=== PATIENT | female | born 1990 | race Caucasian/White ===

== ENCOUNTER 2018-08-30 15:30 | Day surgery (SDC) | payer OTHER ==
[~2018-08-30] VITALS: Ht 162.6 cm; Wt 89.3 kg
[2018-08-30 16:22] VITALS: BP 126/74; PULSE 76; TEMP 98.9
[2018-08-30] MEDS ORDERED: BRINTELLIX20 PO (16:50)
[2018-08-30] MEDS ORDERED: PRENATAL FORMU1 EAC3 PO (16:51)
[2018-08-30 17:25] VITALS: BP 109/64; PULSE 79; TEMP 97.9
[2018-08-30 17:30] VITALS: BP 105/64; PULSE 76
[2018-08-30] MEDS ORDERED: IBU600 MG PO (17:33)
[2018-08-30 17:45] VITALS: BP 100/59; PULSE 72
[2018-08-30 18:00] VITALS: BP 117/78; PULSE 77
[2018-08-30 18:45] VITALS: BP 125/71; PULSE 84; TEMP 98.5
== END 2018-08-30 19:05 | disposition home or self-care (01) ==
LOC: SDCO 15:30
DX: O02.1 Missed abortion (principal); F43.10 Post-traumatic stress disorder, unspecified; F90.9 Attention-deficit hyperactivity disorder, unspecified type; F41.9 Anxiety disorder, unspecified; K21.9 Gastro-esophageal reflux disease without esophagitis; D64.9 Anemia, unspecified
CPT/HCPCS: G0378; J0690; J1885; J2405; J2704; J3010

== ENCOUNTER → 2021-10-29 | Outpatient (CLI) | payer OTHER ==
[~2021-10-29] VITALS: Ht 162.6 cm; Wt 100.7 kg
[~2021-10-29] MED LIST: BRINTELLIX20 PO; D3-5050000 IU PO; EFFEXOR XR75 MG/CAP PO; FLEXERIL 1010 MG/TAB PO; IBU600 MG PO; PRENATAL FORMU1 EAC3 PO; VYVANSE30 MG PO; WEGOVY2.4 MG/0.7 SQ
[2021-10-29 09:11] VITALS: BP 119/78; PULSE 82; TEMP 98.1
[2021-10-29 09:50] VITALS: BP 116/83; PULSE 88
== END ==
LOC: COL.RAD 10-14 12:00
DX: M48.02 Spinal stenosis, cervical region (principal)
CPT/HCPCS: J1100

== ENCOUNTER → 2022-01-18 | Outpatient (CLI) | payer OTHER | LOC: COL.RAD 10:16 | DX: E21.3 Hyperparathyroidism, unspecified (principal) | CPT/HCPCS: A9500 ==

== ENCOUNTER 2022-07-12 19:19 | Emergency (ER) | payer OTHER ==
[~2022-07-12] VITALS: Ht 162.6 cm; Wt 97.7 kg
[2022-07-12 19:25] VITALS: TEMP 97.7
[2022-07-12 19:55] LABS: BASO # 0.1 K/mm3 (0.0-0.2); BASO % 0.4 % (0.0-2.0); EOS # 0.6 K/mm3 (0.0-0.7); EOS % 4.1 % (0.0-4.0); GRAN # 9.7 K/mm3 (1.4-6.5); HEMATOCRIT 42.6 % (37.0-47.0); HEMOGLOBIN 14.2 g/dl (12.5-16.0); LYMPH # 3.3 K/mm3 (1.2-3.4); LYMPH % 22.8 % (20.0-51.0); MEAN CELL VOLUME 85 fl (80.0-100.0); MEAN CORPUSCULAR HEMOGLOBIN 29 pg (27-31); MEAN CORPUSCULAR HGB CONC 33 g/dl (33.0-37.0); MEAN PLATELET VOLUME 9.3 fl (7.4-10.4); MONO # 0.6 K/mm3 (0.1-0.6); MONO % 4.3 % (1.7-9.3); PLATELET COUNT 375 K/mm3 (130-400); RED BLOOD COUNT 4.99 M/mm3 (4.10-5.30); REDCELL DISTRIBUTION WIDTH-CV 14.2 % (11.5-14.5)
[2022-07-12 20:10] LABS: ALBUMIN 3.5 gm/dL (3.5-5.0); BILIRUBIN,TOTAL 0.3 mg/dL (0.2-1.2); CALCIUM 9.5 mg/dL (8.4-10.2); CREATININE, serum 0.73 mg/dL (0.57-1.11); POTASSIUM 4.5 mmol/L (3.5-4.5); TOTAL PROTEIN 7.9 gm/dL (6.2-8.1)
[2022-07-12 20:37] LABS: COLLECTION METHOD CLEAN CATCH
[2022-07-12 20:55] LABS: URINE APPEARANCE Clear (CLEAR/HAZY); URINE BLOOD Negative (NEGATIVE); URINE COLOR Yellow (YELLOW); URINE GLUCOSE Negative (NEGATIVE); URINE KETONE TRACE (NEGATIVE); URINE NITRATE Negative (NEGATIVE); URINE PROTEIN(semi-quant) 1+ (NEGATIVE); URINE UROBILINOGEN 0.2 E.U/dL (0.2-1.0)
[2022-07-12 21:00] LABS: MUCOUS Present (NOT PRESENT); URINE BACTERIA Rare /hpf (NONE SEEN); URINE RBC 0-2 /hpf (0-2)
[2022-07-12 21:13] VITALS: BP 116/70; PULSE 98
== END 2022-07-12 21:34 | disposition home or self-care (01) ==
LOC: COL.ER 19:19
PROVIDERS: Personal Emergency Response Attendant
DX: R11.10 Vomiting, unspecified (principal); R74.01 Elevation of levels of liver transaminase levels; Z90.89 Acquired absence of other organs
CPT/HCPCS: J2060; J2405; J7030

== ENCOUNTER → 2023-01-16 | Outpatient (CLI) | payer BC, OTHER | LOC: MHCPAIN 09:52 | DX: M54.81 Occipital neuralgia (principal); M54.2 Cervicalgia; M54.50 Low back pain, unspecified; M35.7 Hypermobility syndrome; M53.3 Sacrococcygeal disorders, not elsewhere classified; G58.8 Other specified mononeuropathies | CPT/HCPCS: G0463 ==